=== PATIENT | male | born 1965 | race Caucasian/White ===

== ENCOUNTER 2024-02-04 21:46 | Emergency (ER) | payer SELFPAY ==
[2024-02-04] MEDS: Sodium Chloride 0.9% 1,000 ML IV STA (22:28)
[2024-02-04 22:34] LABS: BASOPHILS ABSOLUTE AUTO 0.09 K/uL (0.00-0.20); BASOPHILS PERCENT AUTO 0.5 % (0.0-1.0); EOSINOPHILS ABSOLUTE AUTO 0.27 K/uL (0.00-0.45); EOSINOPHILS PERCENT AUTO 1.6 % (0.0-6.0); HEMATOCRIT 25.4 % (42.0-52.0); HEMOGLOBIN 8.2 g/dL (14.0-18.0); IMMATURE GRAN ABSOLUTE AUTO 0.17 K/uL (0.00-0.05); LYMPHOCYTES ABSOLUTE AUTO 1.52 K/uL (1.00-4.80); LYMPHOCYTES PERCENT AUTO 8.9 % (24.0-44.0); MEAN CORPUSCULAR HEMOGLOBIN 30.3 pg (28.0-32.0); MEAN CORPUSCULAR HGB CONC 32.3 g/dL (32.0-36.0); MEAN CORPUSCULAR VOLUME 93.7 fL (83.0-99.0); MEAN PLATELET VOLUME 8.3 fL (9.4-12.4); MONOCYTES ABSOLUTE AUTO 1.24 K/uL (0.00-0.80); MONOCYTES PERCENT AUTO 7.2 % (0.0-8.0); NEUTROPHILS ABSOLUTE AUTO 13.83 K/uL (1.80-7.70); NEUTROPHILS PERCENT AUTO 80.8 % (41.0-71.0); PLATELET COUNT,PLT 380 K/uL (150-400); RED BLOOD CELL COUNT 2.71 M/uL (4.52-5.90); WHITE BLOOD CELL COUNT,WBC 17.12 K/uL (3.9-11.3)
[2024-02-04 22:35] LABS: APPEARANCE,URINE CLOUDY; BILIRUBIN,URINE NEGATIVE (NEGATIVE); COLOR,URINE YELLOW; GLUCOSE,URINE NEGATIVE (NEGATIVE); KETONES,URINE NEGATIVE (NEGATIVE); LEUKOCYTE ESTERASE,URINE LARGE (NEGATIVE); NITRITE,URINE NEGATIVE (NEGATIVE); OCCULT BLOOD,URINE MODERATE (NEGATIVE); PROTEIN,URINE TRACE mg/dL (NEGATIVE); UROBILINOGEN,URINE 0.2 EU/dL (<2.0)
[2024-02-04 22:42] LABS: BACTERIA,URINE FEW (NEGATIVE); EPITHELIAL CELLS,URINE FEW (NONE-FEW); WBC,URINE TOO NUMEROUS TO CT (0-5/HPF)
[2024-02-04 22:59] LABS: A/G RATIO 0.8 (0.9-1.6); ALBUMIN 3.3 g/dL (3.4-5.0); BILIRUBIN TOTAL 0.3 mg/dL (0.2-1.0); CALCIUM 7.1 mg/dL (8.5-10.1); CARBON DIOXIDE,CO2 15.8 mmol/L (21.0-32.0); CREATININE 5.6 mg/dL (0.8-1.3); EST CRCL DRUG DOSING (CG) 13.77 mL/min; POTASSIUM,K 4.3 mmol/L (3.5-5.1); PROTEIN TOTAL,TP 7.3 g/dL (6.4-8.2)
[2024-02-04] MEDS: Ondansetron 4 MG/2 ML SDV IVPUSH ONE (23:56)
[2024-02-05] MEDS: cefTRIAXone 1 GM in Sodium Chloride 0.9% 50 ML IV ONE (01:29)
[2024-02-05 02:36] VITALS: BP 148/90; PULSE 90
== END 2024-02-05 04:00 ==
LOC: MW.ED 21:46
DX: N13.2 Hydronephrosis with renal and ureteral calculous obstruction (principal); N39.0 Urinary tract infection, site not specified; N17.9 Acute kidney failure, unspecified; Z88.2 Allergy status to sulfonamides; Z88.8 Allergy status to other drugs, medicaments and biological substances; Z75.8 Other problems related to medical facilities and other health care
CPT/HCPCS: 36415; 51702; 74176; 74176-26; 80053; 81001; 85025; 96361; 96365; 96375; 99285-25; J0696; J2405; J3490; J7030

== ENCOUNTER 2024-05-11 17:12 | Emergency (ER) | payer MEDICAID ==
[2024-05-11 18:15] LABS: BASOPHILS ABSOLUTE AUTO 0.04 K/uL (0.00-0.20); BASOPHILS PERCENT AUTO 0.6 % (0.0-1.0); EOSINOPHILS ABSOLUTE AUTO 0.13 K/uL (0.00-0.45); EOSINOPHILS PERCENT AUTO 1.9 % (0.0-6.0); HEMOGLOBIN 10.5 g/dL (14.0-18.0); IMMATURE GRAN ABSOLUTE AUTO 0.01 K/uL (0.00-0.05); IMMATURE GRAN PERCENT AUTO 0.1 % (0.0-0.4); LYMPHOCYTES PERCENT AUTO 5.8 % (24.0-44.0); MEAN CORPUSCULAR HEMOGLOBIN 28.7 pg (28.0-32.0); MEAN CORPUSCULAR HGB CONC 32.8 g/dL (32.0-36.0); MEAN CORPUSCULAR VOLUME 87.4 fL (83.0-99.0); MEAN PLATELET VOLUME 8.8 fL (9.4-12.4); MONOCYTES ABSOLUTE AUTO 1.19 K/uL (0.00-0.80); MONOCYTES PERCENT AUTO 17.1 % (0.0-8.0); NEUTROPHILS ABSOLUTE AUTO 5.18 K/uL (1.80-7.70); NEUTROPHILS PERCENT AUTO 74.5 % (41.0-71.0); PLATELET COUNT,PLT 250 K/uL (150-400); RED BLOOD CELL COUNT 3.66 M/uL (4.52-5.90); WHITE BLOOD CELL COUNT,WBC 6.95 K/uL (3.9-11.3)
[2024-05-11] MEDS: Sodium Chloride 0.9% 1,000 ML IV ONE ×2 (18:16→19:43)
[2024-05-11] MEDS: Ondansetron 4 MG/2 ML SDV IVPUSH ONE (18:18)
[2024-05-11] MEDS: Morphine 4 MG/ML Syringe IVPUSH ONE (18:18)
[2024-05-11 18:36] LABS: A/G RATIO 0.9 (0.9-1.6); ALANINE AMINOTRANSFERASE,ALT 17 IU/L (14-63); ALBUMIN 3.4 g/dL (3.4-5.0); ALKALINE PHOSPHATASE 159 U/L (46-116); ASPARTATE AMNIOTRANSFERASE,AST 16 IU/L (15-37); BILIRUBIN TOTAL 0.3 mg/dL (0.2-1.0); BLOOD UREA NITROGEN,BUN 45 mg/dL (7.0-18.0); CALCIUM 7.8 mg/dL (8.5-10.1); CARBON DIOXIDE,CO2 17.7 mmol/L (21.0-32.0); CHLORIDE,CL 107 mmol/L (98-107); CREATININE 4.5 mg/dL (0.8-1.3); GLUCOSE RANDOM 116 mg/dL (74-106); POTASSIUM,K 4.2 mmol/L (3.5-5.1); SODIUM,NA 139 mmol/L (136-148)
[2024-05-11 18:40] LABS: ESTIMATED GFR 15 mL/min (>60)
[2024-05-11 18:54] LABS: BILIRUBIN,URINE NEGATIVE (NEGATIVE); COLOR,URINE YELLOW; GLUCOSE,URINE NEGATIVE (NEGATIVE); KETONES,URINE NEGATIVE (NEGATIVE); LEUKOCYTE ESTERASE,URINE LARGE (NEGATIVE); NITRITE,URINE NEGATIVE (NEGATIVE); OCCULT BLOOD,URINE TRACE-INTACT (NEGATIVE); PROTEIN,URINE NEGATIVE (NEGATIVE); UROBILINOGEN,URINE 0.2 EU/dL (<2.0)
[2024-05-11 18:58] LABS: LACTIC ACID 0.7 mmol/L (0.4-2.0)
[2024-05-11 19:04] LABS: APPEARANCE,URINE HAZY
[2024-05-11 19:05] LABS: BACTERIA,URINE FEW (NEGATIVE); RBC,URINE 0-5 (0-2/HPF)
[2024-05-11 19:06] LABS: EPITHELIAL CELLS,URINE OCCASIONAL (NONE-FEW); WBC,URINE TOO NUMEROUS TO CT (0-5/HPF)
[2024-05-11] MEDS: cefTRIAXone 1 GM in Sodium Chloride 0.9% 50 ML IV ONE (19:33)
[2024-05-11 21:49] VITALS: BP 136/85; PULSE 86
[2024-05-11 21:55] LABS: A/G RATIO 0.9 (0.9-1.6); ALBUMIN 3.3 g/dL (3.4-5.0); BILIRUBIN TOTAL 0.2 mg/dL (0.2-1.0); CALCIUM 7.2 mg/dL (8.5-10.1); CARBON DIOXIDE,CO2 18.7 mmol/L (21.0-32.0); CREATININE 4.2 mg/dL (0.8-1.3); POTASSIUM,K 4.5 mmol/L (3.5-5.1); PROTEIN TOTAL,TP 6.8 g/dL (6.4-8.2)
== END 2024-05-11 22:00 | disposition home or self-care (01) ==
LOC: MW.ED 17:12
DX: N39.0 Urinary tract infection, site not specified (principal); N17.9 Acute kidney failure, unspecified; Z75.8 Other problems related to medical facilities and other health care; Z90.49 Acquired absence of other specified parts of digestive tract; Z79.899 Other long term (current) drug therapy; Z88.8 Allergy status to other drugs, medicaments and biological substances; Z88.2 Allergy status to sulfonamides
CPT/HCPCS: 36415; 74176; 80053; 81001; 83605; 85025; 87040; 87086; 87088; 87181; 87184; 87186; 96361; 96365; 96375; 99284; J0696; J2270; J2405; J3490; J7030; 99283

== ENCOUNTER 2024-08-30 12:28 | Emergency (ER) | payer MEDICAID ==
[2024-08-30 13:08] LABS: BASOPHILS ABSOLUTE AUTO 0.06 K/uL (0.00-0.20); BASOPHILS PERCENT AUTO 0.7 % (0.0-1.0); EOSINOPHILS ABSOLUTE AUTO 0.18 K/uL (0.00-0.45); HEMATOCRIT 32.4 % (42.0-52.0); HEMOGLOBIN 10.8 g/dL (14.0-18.0); IMMATURE GRAN ABSOLUTE AUTO 0.02 K/uL (0.00-0.05); IMMATURE GRAN PERCENT AUTO 0.2 % (0.0-0.4); LYMPHOCYTES ABSOLUTE AUTO 1.03 K/uL (1.00-4.80); LYMPHOCYTES PERCENT AUTO 11.4 % (24.0-44.0); MEAN CORPUSCULAR HEMOGLOBIN 29.4 pg (28.0-32.0); MEAN CORPUSCULAR HGB CONC 33.3 g/dL (32.0-36.0); MEAN CORPUSCULAR VOLUME 88.3 fL (83.0-99.0); MEAN PLATELET VOLUME 8.3 fL (9.4-12.4); MONOCYTES PERCENT AUTO 6.7 % (0.0-8.0); NEUTROPHILS ABSOLUTE AUTO 7.11 K/uL (1.80-7.70); PLATELET COUNT,PLT 312 K/uL (150-400); RED BLOOD CELL COUNT 3.67 M/uL (4.52-5.90)
[2024-08-30 13:28] LABS: ALANINE AMINOTRANSFERASE,ALT 21 IU/L (14-63); ALBUMIN 3.5 g/dL (3.4-5.0); ALKALINE PHOSPHATASE 177 U/L (46-116); ASPARTATE AMNIOTRANSFERASE,AST 14 IU/L (15-37); BILIRUBIN TOTAL 0.3 mg/dL (0.2-1.0); BLOOD UREA NITROGEN,BUN 50 mg/dL (7.0-18.0); CALCIUM 7.1 mg/dL (8.5-10.1); CARBON DIOXIDE,CO2 19.4 mmol/L (21.0-32.0); CHLORIDE,CL 109 mmol/L (98-107); CREATININE 5.3 mg/dL (0.8-1.3); GLUCOSE RANDOM 105 mg/dL (74-106); LIPASE 107 U/L (16-77); MAGNESIUM 1.5 mg/dL (1.8-2.4); POTASSIUM,K 4.4 mmol/L (3.5-5.1); SODIUM,NA 142 mmol/L (136-148)
[2024-08-30 13:29] LABS: ESTIMATED GFR 12 mL/min (>60)
[2024-08-30 15:32] VITALS: BP 159/82; PULSE 87
[2024-08-30 16:26] LABS: BILIRUBIN,URINE NEGATIVE (NEGATIVE); COLOR,URINE YELLOW; GLUCOSE,URINE NEGATIVE (NEGATIVE); KETONES,URINE NEGATIVE (NEGATIVE); LEUKOCYTE ESTERASE,URINE LARGE (NEGATIVE); NITRITE,URINE NEGATIVE (NEGATIVE); OCCULT BLOOD,URINE TRACE-INTACT (NEGATIVE); PROTEIN,URINE NEGATIVE (NEGATIVE); UROBILINOGEN,URINE 0.2 EU/dL (<2.0)
[2024-08-30 16:35] LABS: APPEARANCE,URINE SLT CLOUDY
[2024-08-30 17:00] LABS: EPITHELIAL CELLS,URINE RARE (NONE-FEW); RBC,URINE 0-2 (0-2/HPF); WBC,URINE 50-75 (0-5/HPF)
[2024-08-30 17:01] LABS: BACTERIA,URINE RARE (NEGATIVE)
== END 2024-08-30 17:50 | disposition left against medical advice (07) ==
LOC: MW.ED 12:28
DX: Z53.21 Procedure and treatment not carried out due to patient leaving prior to being seen by health care provider (principal)
CPT/HCPCS: 36415; 80053; 81001; 83605; 83690; 83735; 85025; 87086

== ENCOUNTER 2024-08-30 19:05 | Emergency (ER) | payer MEDICAID ==
[2024-08-30] MEDS: Sodium Chloride 0.9% 1,000 ML IV ONE (22:28)
[2024-08-30] MEDS: droPERidol 2.5 MG/ML SDV IVPUSH ONE (22:29)
[2024-08-30 22:42] LABS: BASOPHILS ABSOLUTE AUTO 0.07 K/uL (0.00-0.20); BASOPHILS PERCENT AUTO 0.7 % (0.0-1.0); EOSINOPHILS ABSOLUTE AUTO 0.26 K/uL (0.00-0.45); EOSINOPHILS PERCENT AUTO 2.7 % (0.0-6.0); HEMATOCRIT 32.1 % (42.0-52.0); HEMOGLOBIN 10.5 g/dL (14.0-18.0); IMMATURE GRAN ABSOLUTE AUTO 0.03 K/uL (0.00-0.05); IMMATURE GRAN PERCENT AUTO 0.3 % (0.0-0.4); LYMPHOCYTES ABSOLUTE AUTO 1.73 K/uL (1.00-4.80); MEAN CORPUSCULAR HGB CONC 32.7 g/dL (32.0-36.0); MEAN CORPUSCULAR VOLUME 88.7 fL (83.0-99.0); MEAN PLATELET VOLUME 8.9 fL (9.4-12.4); MONOCYTES ABSOLUTE AUTO 0.65 K/uL (0.00-0.80); MONOCYTES PERCENT AUTO 6.8 % (0.0-8.0); NEUTROPHILS ABSOLUTE AUTO 6.88 K/uL (1.80-7.70); NEUTROPHILS PERCENT AUTO 71.5 % (41.0-71.0); PLATELET COUNT,PLT 336 K/uL (150-400); RED BLOOD CELL COUNT 3.62 M/uL (4.52-5.90); WHITE BLOOD CELL COUNT,WBC 9.62 K/uL (3.9-11.3)
[2024-08-30 22:59] LABS: A/G RATIO 0.9 (0.9-1.6); ALBUMIN 3.5 g/dL (3.4-5.0); BILIRUBIN TOTAL 0.2 mg/dL (0.2-1.0); CALCIUM 7.3 mg/dL (8.5-10.1); CARBON DIOXIDE,CO2 18.9 mmol/L (21.0-32.0); CREATININE 5.2 mg/dL (0.8-1.3); EST CRCL DRUG DOSING (CG) 14.65 mL/min; POTASSIUM,K 4.5 mmol/L (3.5-5.1); PROTEIN TOTAL,TP 7.2 g/dL (6.4-8.2)
[2024-08-31] MEDS: Sodium Chloride 0.9% 1,000 ML IV ONE (01:04)
[2024-08-31 03:29] LABS: CALCIUM 6.8 mg/dL (8.5-10.1); CARBON DIOXIDE,CO2 18.1 mmol/L (21.0-32.0); CREATININE 5.2 mg/dL (0.8-1.3); EST CRCL DRUG DOSING (CG) 14.65 mL/min; POTASSIUM,K 4.4 mmol/L (3.5-5.1)
[2024-08-31 04:24] VITALS: BP 140/90; PULSE 88
== END 2024-08-31 04:21 | disposition home or self-care (01) ==
LOC: MW.ED 19:05
DX: N18.9 Chronic kidney disease, unspecified (principal); K29.70 Gastritis, unspecified, without bleeding; Z75.3 Unavailability and inaccessibility of health-care facilities; Z90.49 Acquired absence of other specified parts of digestive tract; F17.200 Nicotine dependence, unspecified, uncomplicated; Z88.2 Allergy status to sulfonamides; Z88.8 Allergy status to other drugs, medicaments and biological substances
CPT/HCPCS: 36415; 74176; 80048; 80053; 83690; 84484; 85025; 93005; 96361; 96374; 99284; J1790; J7030; 93010